=== PATIENT | female | born 1935 | race Caucasian/White ===

== ENCOUNTER 2019-08-29 14:09 | Inpatient (IN) ==
[2019-08-29] MEDS ORDERED: Insulin DETEMIR 100 UNIT/ML per UNIT SQ PRN (15:40)
[2019-08-29] MEDS: Amoxicillin/Clavulanate 500 MG TABLET PO SCH (17:58)
[2019-08-29] MEDS ORDERED: Dextrose Gel 15 GM/37.5 ML TUBE PO PRN ×2 (19:28)
[2019-08-29] MEDS ORDERED: *HR* Dextrose 50 % in Water (Syg) 50 ML SYRINGE IVP PRN (19:28)
[2019-08-29] MEDS ORDERED: D5% in Water 1,000 ML IVC PRN (19:28)
[2019-08-29] MEDS ORDERED: Insulin DETEMIR 100 UNIT/ML per UNIT SQ SCH (21:00)
[2019-08-29] MEDS: Gabapentin 300 MG CAPSULE PO SCH (21:47)
[2019-08-29] MEDS: Metoprolol 100 MG TABLET PO SCH (21:48)
[2019-08-29] MEDS: Insulin LISPRO 300 UNITS/3 ML VIAL SQ SCH (21:52)
[2019-08-29] MEDS: Budesonide/Formoterol 80/4.5 1 PUFF INH IH SCH (22:04)
[2019-08-30 05:41] LABS: Basophils # 0.1 K/mcL (0.0-0.2); Basophils % 1.2 %; Eosinophils # 0.5 K/mcL (0.0-0.6); Eosinophils % 6.2 %; Hematocrit 37.4 % (35.3-44.9); Hemoglobin 11.9 g/dL (11.5-15.4); Immature Granulocytes % 0.4 % (0-4); Lymphocytes # 1.5 K/mcL (0.6-4.6); Lymphocytes % 20.5 %; Mean Corpuscular HGB Conc 31.8 g/dL (31.6-35.5); Mean Corpuscular Hemoglobin 28.5 pg (28.0-33.3); Mean Corpuscular Volume 89.5 fL (83.0-100.0); Mean Platelet Volume 11.1 fL (9.4-12.4); Monocytes # 0.7 K/mcL (0.0-1.3); Monocytes % 9.9 %; Neutrophils # 4.6 K/mcL (1.6-8.9); Platelet Count 273 K/mcL (140-400); Red Blood Count 4.18 M/mcL (3.82-4.97); Red Cell Distribution Width 17.3 % (11.5-14.5); Segmented Neutrophils % 61.8 %; White Blood Count 7.4 K/mcL (4.3-11.1)
[2019-08-30 06:04] LABS: Albumin 3.2 g/dL (3.5-5.7); Albumin/Globulin Ratio 1.3 (1.1-2.2); Bilirubin,Total 0.3 mg/dL (0.3-1.0); Calcium 8.6 mg/dL (8.6-10.3); Globulin 2.5 g/dL (2.4-3.5); Total Protein 5.7 g/dL (6.4-8.9)
[2019-08-30] MEDS ORDERED: FELODIPINE 10 MG PO SCH (08:00)
[2019-08-30] MEDS: Aspirin Enteric Coated 81 MG Tablet PO SCH (08:57)
[2019-08-30] MEDS: Amoxicillin/Clavulanate 500 MG TABLET PO SCH ×2 (08:57→17:25)
[2019-08-30] MEDS: amLODIPine 5 MG TABLET PO SCH (08:57)
[2019-08-30] MEDS: Metoprolol 100 MG TABLET PO SCH ×2 (08:57→20:11)
[2019-08-30] MEDS: Insulin LISPRO 300 UNITS/3 ML VIAL SQ SCH ×4 (08:59→20:20)
[2019-08-30] MEDS: Gabapentin 300 MG CAPSULE PO SCH ×3 (09:00→20:19)
[2019-08-30] MEDS: Budesonide/Formoterol 80/4.5 1 PUFF INH IH SCH ×2 (09:01→21:25)
[2019-08-30] MEDS: Insulin DETEMIR 100 UNIT/ML X5UNITS SQ SCH (20:19)
[2019-08-31] MEDS: Insulin LISPRO 300 UNITS/3 ML VIAL SQ SCH ×4 (08:28→20:56)
[2019-08-31] MEDS: Metoprolol 100 MG TABLET PO SCH ×2 (08:29→20:57)
[2019-08-31] MEDS: Amoxicillin/Clavulanate 500 MG TABLET PO SCH ×2 (08:30→16:41)
[2019-08-31] MEDS: amLODIPine 5 MG TABLET PO SCH (08:30)
[2019-08-31] MEDS: Aspirin Enteric Coated 81 MG Tablet PO SCH (08:30)
[2019-08-31] MEDS: Gabapentin 300 MG CAPSULE PO SCH ×3 (08:32→21:07)
[2019-08-31] MEDS: Budesonide/Formoterol 80/4.5 1 PUFF INH IH SCH ×2 (10:15→21:07)
[2019-08-31] MEDS ORDERED: CloNIDine Patch 0.1 MG PATCH (WEEKLY) TD SCH (15:31)
[2019-08-31] MEDS: Insulin DETEMIR 100 UNIT/ML X5UNITS SQ SCH (21:08)
[2019-09-01 06:29] LABS: Basophils # 0.1 K/mcL (0.0-0.2); Basophils % 0.8 %; Eosinophils # 0.5 K/mcL (0.0-0.6); Eosinophils % 6.1 %; Hematocrit 39.2 % (35.3-44.9); Hemoglobin 12.5 g/dL (11.5-15.4); Immature Granulocytes % 0.4 % (0-4); Lymphocytes # 1.2 K/mcL (0.6-4.6); Lymphocytes % 15.1 %; Mean Corpuscular HGB Conc 31.9 g/dL (31.6-35.5); Mean Platelet Volume 10.6 fL (9.4-12.4); Monocytes # 0.8 K/mcL (0.0-1.3); Monocytes % 10.6 %; Neutrophils # 5.2 K/mcL (1.6-8.9); Platelet Count 264 K/mcL (140-400); Red Blood Count 4.31 M/mcL (3.82-4.97); Red Cell Distribution Width 17.6 % (11.5-14.5); White Blood Count 7.8 K/mcL (4.3-11.1)
[2019-09-01 07:17] LABS: Calcium 8.7 mg/dL (8.6-10.3); Magnesium 1.5 mg/dL (1.6-2.6); Potassium 2.9 mEq/L (3.5-5.1)
[2019-09-01] MEDS: Insulin LISPRO 300 UNITS/3 ML VIAL SQ SCH ×4 (08:22→22:28)
[2019-09-01] MEDS: amLODIPine 5 MG TABLET PO SCH (08:24)
[2019-09-01] MEDS: Metoprolol 100 MG TABLET PO SCH ×2 (08:24→22:27)
[2019-09-01] MEDS: Amoxicillin/Clavulanate 500 MG TABLET PO SCH ×2 (08:24→17:08)
[2019-09-01] MEDS: Aspirin Enteric Coated 81 MG Tablet PO SCH (08:24)
[2019-09-01] MEDS: Gabapentin 300 MG CAPSULE PO SCH ×3 (08:42→22:27)
[2019-09-01] MEDS: Budesonide/Formoterol 80/4.5 1 PUFF INH IH SCH ×2 (10:51→22:31)
[2019-09-01] MEDS: Insulin DETEMIR 100 UNIT/ML X5UNITS SQ SCH (22:35)
[2019-09-02 06:04] LABS: Calcium 8.8 mg/dL (8.6-10.3); Magnesium 1.5 mg/dL (1.6-2.6)
[2019-09-02] MEDS: Insulin LISPRO 300 UNITS/3 ML VIAL SQ SCH ×4 (07:55→21:19)
[2019-09-02] MEDS: amLODIPine 5 MG TABLET PO SCH (09:47)
[2019-09-02] MEDS: Metoprolol 100 MG TABLET PO SCH ×2 (09:47→22:07)
[2019-09-02] MEDS: Amoxicillin/Clavulanate 500 MG TABLET PO SCH ×2 (09:48→17:27)
[2019-09-02] MEDS: Aspirin Enteric Coated 81 MG Tablet PO SCH (09:48)
[2019-09-02] MEDS: Gabapentin 300 MG CAPSULE PO SCH ×3 (09:50→22:06)
[2019-09-02] MEDS: Budesonide/Formoterol 80/4.5 1 PUFF INH IH SCH ×2 (10:04→22:07)
[2019-09-02] MEDS: Insulin DETEMIR 100 UNIT/ML X5UNITS SQ SCH (22:12)
[2019-09-03] MEDS: Aspirin Enteric Coated 81 MG Tablet PO SCH (08:26)
[2019-09-03] MEDS: Gabapentin 300 MG CAPSULE PO SCH ×3 (08:26→21:51)
[2019-09-03] MEDS: Metoprolol 100 MG TABLET PO SCH ×2 (08:26→21:51)
[2019-09-03] MEDS: Amoxicillin/Clavulanate 500 MG TABLET PO SCH ×2 (08:26→16:54)
[2019-09-03] MEDS: Insulin LISPRO 300 UNITS/3 ML VIAL SQ SCH ×4 (08:27→21:55)
[2019-09-03] MEDS: amLODIPine 5 MG TABLET PO SCH (08:27)
[2019-09-03] MEDS ORDERED: Magnesium Oxide 400 MG TABLET PO SCH (09:00)
[2019-09-03] MEDS: Budesonide/Formoterol 80/4.5 1 PUFF INH IH SCH ×2 (09:38→21:55)
[2019-09-03] MEDS: Insulin DETEMIR 100 UNIT/ML X5UNITS SQ SCH (21:52)
[2019-09-04 05:58] LABS: Mean Corpuscular HGB Conc 31.1 g/dL (31.6-35.5); Mean Corpuscular Hemoglobin 28.9 pg (28.0-33.3); Mean Corpuscular Volume 92.8 fL (83.0-100.0); Mean Platelet Volume 10.2 fL (9.4-12.4); Platelet Count 264 K/mcL (140-400); Red Blood Count 3.77 M/mcL (3.82-4.97); Red Cell Distribution Width 18.5 % (11.5-14.5)
[2019-09-04 06:05] LABS: Hemoglobin 10.9 g/dL (11.5-15.4)
[2019-09-04 06:16] LABS: Calcium 8.6 mg/dL (8.6-10.3); Magnesium 1.4 mg/dL (1.6-2.6); Potassium 3.7 mEq/L (3.5-5.1)
[2019-09-04] MEDS: Gabapentin 300 MG CAPSULE PO SCH ×3 (08:48→19:48)
[2019-09-04] MEDS: Aspirin Enteric Coated 81 MG Tablet PO SCH (08:48)
[2019-09-04] MEDS: Magnesium Oxide 400 MG TABLET PO SCH ×2 (08:49→19:48)
[2019-09-04] MEDS: Insulin LISPRO 300 UNITS/3 ML VIAL SQ SCH ×4 (08:49→19:54)
[2019-09-04] MEDS: Amoxicillin/Clavulanate 500 MG TABLET PO SCH ×2 (08:49→17:01)
[2019-09-04] MEDS: Metoprolol 100 MG TABLET PO SCH ×2 (08:49→19:48)
[2019-09-04] MEDS: amLODIPine 5 MG TABLET PO SCH (08:49)
[2019-09-04] MEDS: Budesonide/Formoterol 80/4.5 1 PUFF INH IH SCH ×2 (09:40→21:07)
[2019-09-04] MEDS: Insulin DETEMIR 100 UNIT/ML X5UNITS SQ SCH (19:55)
[2019-09-05] MEDS: Insulin LISPRO 300 UNITS/3 ML VIAL SQ SCH ×4 (07:38→20:59)
[2019-09-05] MEDS: Magnesium Oxide 400 MG TABLET PO SCH ×2 (07:55→20:58)
[2019-09-05] MEDS: Aspirin Enteric Coated 81 MG Tablet PO SCH (07:55)
[2019-09-05] MEDS: amLODIPine 5 MG TABLET PO SCH (07:55)
[2019-09-05] MEDS: Metoprolol 100 MG TABLET PO SCH ×2 (07:55→20:58)
[2019-09-05] MEDS: Amoxicillin/Clavulanate 500 MG TABLET PO SCH ×2 (07:55→17:13)
[2019-09-05] MEDS: Gabapentin 300 MG CAPSULE PO SCH ×3 (07:58→20:58)
[2019-09-05] MEDS: Budesonide/Formoterol 80/4.5 1 PUFF INH IH SCH ×2 (10:08→21:11)
[2019-09-05] MEDS: Insulin DETEMIR 100 UNIT/ML X5UNITS SQ SCH (20:58)
[2019-09-06] MEDS: Budesonide/Formoterol 80/4.5 1 PUFF INH IH SCH (07:09)
[2019-09-06 07:48] VITALS: BP 138/72
[2019-09-06] MEDS: Insulin LISPRO 300 UNITS/3 ML VIAL SQ SCH (07:49)
[2019-09-06] MEDS: amLODIPine 5 MG TABLET PO SCH (07:57)
[2019-09-06] MEDS: Magnesium Oxide 400 MG TABLET PO SCH (07:57)
[2019-09-06] MEDS: Amoxicillin/Clavulanate 500 MG TABLET PO SCH (07:57)
[2019-09-06] MEDS: Aspirin Enteric Coated 81 MG Tablet PO SCH (07:57)
[2019-09-06] MEDS: Metoprolol 100 MG TABLET PO SCH (07:58)
[2019-09-06] MEDS: Gabapentin 300 MG CAPSULE PO SCH (08:01)
== END 2019-09-06 10:50 | DRG 945 ==
LOC: INPGRE 14:09
PROVIDERS: ADMIT Family Medicine; ATTEND Family Medicine